=== PATIENT | male | born 1945 | race Caucasian/White ===

== ENCOUNTER 2024-01-02 07:55 | Inpatient (IN) | payer MEDICARE ==
[~2024-01-02] VITALS: Ht 172.7 cm; Wt 70.3 kg
[2024-01-02] MEDS ORDERED: ANESTHESIA TRAY IN PYXIS 1 EA TRAY MC ONE (08:28)
[2024-01-02] MEDS ORDERED: dexaMETHasone SOD PHOSPHATE 2 ML ONE (08:29)
[2024-01-02] MEDS ORDERED: LIDOCAINE 2%-EPI 1:100,000 30 ML VIAL ONE (08:29)
[2024-01-02] MEDS ORDERED: VANCOMYCIN 1 GM VIAL ONE (08:29)
[2024-01-02] MEDS: IV NS 0.9% 1,000 ML IV PRN (11:55)
[2024-01-02] MEDS: HYDROMORPHONE 1 MG/1 ML DISP.SYRIN IV PRN (11:57)
[2024-01-02] MEDS ORDERED: MAGNESIUM HYDROXIDE 30 ML UDC PO PRN (12:00)
[2024-01-02] MEDS ORDERED: Z GUARD REMEDY 4 OZ OINT TP PRN (12:00)
[2024-01-02] MEDS ORDERED: ONDANSETRON HCL/PF 4 MG/2 ML VIAL IV PRN (12:00)
[2024-01-02] MEDS ORDERED: MAG HYDROX/AL HYDROX/SIMETH 30 ML UDC PO PRN (12:00)
[2024-01-02] MEDS ORDERED: ACETAMINOPHEN 325 MG TABLET PO PRN (12:00)
[2024-01-02] MEDS ORDERED: ONDANSETRON HCL/PF 4 MG/2 ML VIAL IVP PRN (12:00)
[2024-01-02] MEDS ORDERED: HYDROCODONE/APAP 5/325MG TABLET PO PRN (12:00)
[2024-01-02 12:30] VITALS: BP 150/76; TEMP 97.3
[2024-01-02] MEDS ORDERED: FLUT100B3 IH (13:26)
[2024-01-02] MEDS ORDERED: TELM40TA8 PO (13:26)
[2024-01-02] MEDS ORDERED: TADA5TAB2 PO (13:26)
[2024-01-02] MEDS ORDERED: AMLO5TAB4 PO (13:26)
[2024-01-02] MEDS ORDERED: LEVO137T24 PO (13:26)
[2024-01-02] MEDS ORDERED: SIMV20TA2 PO (13:26)
[2024-01-02] MEDS ORDERED: GABA-532 PO (13:26)
[2024-01-02] MEDS ORDERED: DOXA8TAB79 PO (13:26)
[2024-01-02] MEDS ORDERED: ASPI-1169 PO (13:26)
[2024-01-02] MEDS ORDERED: IPRA42SP BNOSTRILS (13:26)
[2024-01-02] MEDS ORDERED: METO-358 PO (13:26)
[2024-01-02] MEDS ORDERED: PANT40TA2 PO (13:26)
[2024-01-02 16:00] VITALS: BP 133/74; TEMP 97.5; O2SAT 93
[2024-01-02] MEDS: PANTOPRAZOLE 40 MG TABLET.DR PO SCH (16:17)
[2024-01-02] MEDS: GABAPENTIN 100 MG CAPSULE PO SCH (18:10)
[2024-01-02] MEDS: METOPROLOL SUCCINATE 50 MG TAB.SR.24H PO SCH (18:10)
[2024-01-02] MEDS: VANCOMYCIN 1 GM in IV D5W 250ml IV SCH (20:06)
[2024-01-02] MEDS: ACETAMINOPHEN 325 MG TABLET PO PRN (20:07)
[2024-01-02 20:50] VITALS: BP 149/81; TEMP 98.2; O2SAT 96
[2024-01-02] MEDS: DOXAZOSIN MESYLATE (4 MG) 4 MG TABLET PO ONE (22:33)
[2024-01-02] MEDS: SIMVASTATIN 20 MG TABLET PO ONE (22:33)
[2024-01-03 06:49] LABS: BASOPHILS % (AUTO) 0.1 % (0.0-2.0); HEMATOCRIT 33 % (39-51); HEMOGLOBIN 11.2 g/dL (13.5-17.5); LYMPHOCYTES # (AUTO) 0.8 K/uL (0.8-4.8); LYMPHOCYTES % (AUTO) 9.6 % (20.0-44.0); MEAN CORPUSCULAR HEMOGLOBIN 30 PG (26.0-33.0); MEAN CORPUSCULAR HGB CONC 34 g/dl (31.0-36.0); MEAN CORPUSCULAR VOLUME 88 fL (80-96); MONOCYTES # (AUTO) 0.4 K/uL (0.1-1.30); MONOCYTES % (AUTO) 5.5 % (2.0-12.0); NEUTROPHILS # (AUTO) 6.8 K/uL (1.8-8.9); NEUTROPHILS % (AUTO) 84.8 % (43.0-81.0); PLATELET COUNT (AUTO) 142 K/uL (150-450); RED BLOOD CELL COUNT(AUTO) 3.73 MIL/uL (4.5-6.0); RED CELL DISTRIBUTION WIDTH 14.6 % (11.5-15.0)
[2024-01-03 06:58] LABS: CALCIUM, SERUM 8.4 mg/dL (8.5-10.1); CARBON DIOXIDE 23 mmol/L (21-32); CHLORIDE 104 mmol/L (98-107); CREATININE 1.5 mg/dL (0.6-1.3); GLUCOSE 147 mg/dL (74-106); MAGNESIUM 1.8 mg/dL (1.8-2.4); PHOSPHORUS 2.9 mg/dL (2.5-4.9); POTASSIUM 4.9 mmol/L (3.5-5.1); SODIUM SERUM 137 mmol/L (136-145); UREA NITROGEN, BLOOD 25 mg/dL (7-18)
[2024-01-03] MEDS: LEVOTHYROXINE SODIUM 137 MCG TABLET PO SCH (07:26)
[2024-01-03] MEDS ORDERED: PANTOPRAZOLE 40 MG TABLET.DR PO SCH ×2 (07:30→19:30)
[2024-01-03] MEDS: ASPIRIN 81 MG TAB.CHEW PO SCH (08:35)
[2024-01-03] MEDS: AMLODIPINE BESYLATE 5 MG TABLET PO SCH (08:35)
[2024-01-03 08:46] VITALS: BP 156/80; TEMP 98.4; O2SAT 96
== END 2024-01-03 11:00 | disposition home or self-care (01) | DRG 141 ==
LOC: DS 07:55 → MED 11:12
PROVIDERS: ADMIT Internal Medicine; ATTEND Internal Medicine
PROC: 0N5T0ZZ Destruction of Right Mandible, Open Approach (ICD-10-PCS; principal; 2024-01-03)
PROC: 0NSR04Z Reposition Maxilla with Internal Fixation Device, Open Approach (ICD-10-PCS; 2024-01-03)
PROC: 0NST04Z Reposition Right Mandible with Internal Fixation Device, Open Approach (ICD-10-PCS; 2024-01-03)
PROC: 0NUT07Z Supplement Right Mandible with Autologous Tissue Substitute, Open Approach (ICD-10-PCS; 2024-01-03)
PROC: 0NUR07Z Supplement Maxilla with Autologous Tissue Substitute, Open Approach (ICD-10-PCS; 2024-01-03)
PROC: 0N5R0ZZ Destruction of Maxilla, Open Approach (ICD-10-PCS; 2024-01-03)
DX: S02.40DA Maxillary fracture, left side, initial encounter for closed fracture (principal); I42.1 Obstructive hypertrophic cardiomyopathy; M27.2 Inflammatory conditions of jaws; S02.609A Fracture of mandible, unspecified, initial encounter for closed fracture; D16.4 Benign neoplasm of bones of skull and face; I12.9 Hypertensive chronic kidney disease with stage 1 through stage 4 chronic kidney disease, or unspecified chronic kidney disease; N18.30 Chronic kidney disease, stage 3 unspecified; I25.10 Atherosclerotic heart disease of native coronary artery without angina pectoris; E78.5 Hyperlipidemia, unspecified; E03.9 Hypothyroidism, unspecified; Z87.891 Personal history of nicotine dependence; Z79.51 Long term (current) use of inhaled steroids; Z79.82 Long term (current) use of aspirin; Z79.890 Hormone replacement therapy; Z79.899 Other long term (current) drug therapy; G62.9 Polyneuropathy, unspecified; Z95.1 Presence of aortocoronary bypass graft; Z95.810 Presence of automatic (implantable) cardiac defibrillator; Z88.1 Allergy status to other antibiotic agents; X58.XXXA Exposure to other specified factors, initial encounter; Y92.9 Unspecified place or not applicable; J32.0 Chronic maxillary sinusitis
CPT/HCPCS: 36415; 80048-TC; 83735-TC; 84100-TC; 85025-TC; A4338; C1713; C1781; G0378; J1100; J1170; J3370; J3490; J7030; J7060